=== PATIENT | male | born 2000 | race Hispanic/Latino ===

== ENCOUNTER 2022-12-21 14:30 | Inpatient (IN) | payer OTHER, MEDICAID ==
[2022-12-21] MEDS ORDERED: Lidocaine 1% w/Epinephrine 1:100K 20 ML VIAL ONE (14:51)
[2022-12-21] MEDS ORDERED: Boostrix 0.5 ML (Tdap) VIAL (>/=7 yrs of age) ONE (14:51)
[2022-12-21] MEDS ORDERED: CEFAZOLIN 2 GM VIAL ONE (14:51)
[2022-12-21] MEDS ORDERED: Lidocaine 2% PF 5 ML VIAL ONE (14:51)
[2022-12-21] MEDS ORDERED: Ketamine 50 MG/ML (10ML VIAL) ONE (14:52)
[2022-12-21] MEDS ORDERED: Iopamidol-370 76% 500 ML MDV (1 ML CHARGE) ONE (15:09)
[2022-12-21 15:15] LABS: Bacteria/HPF None Seen HPF (None Seen); Bilirubin Negative (Negative); Blood, Urine 3+ (Negative); Clarity Clear (Clear); Glucose, Urine (Dipstick) 30 mg/dL (Negative); Ketone, Urine Negative (Negative); Leukocyte Negative Leu/uL (Negative); Nitrite Negative (Negative); Protein, Urine (Dipstick) 30 mg/dL (Neg-Trace); Squamous Epithelial None Seen HPF (0-3); Urobilinogen Normal mg/dL (Less than 2); WBC/HPF None Seen HPF (0-3); pH, Urine 6.5 (5.0-9.0)
[2022-12-21] MEDS ORDERED: fentaNYL 50 mcg/mL 1 mL Vial ONE ×2 (15:15→15:50)
[2022-12-21 15:16] LABS: RBC/HPF 21-50 HPF (0-3)
[2022-12-21 15:23] LABS: #Basophils 0.1 thou/uL (0.0-0.2); #Eosinphils 0.1 thou/uL (0.0-0.7); #Monocytes 0.2 thou/uL (0.11-0.59); #Neutrophils 16.6 thou/uL (1.40-6.50); %Basophils 0.4 % (0.0-1.0); %Eosinophils 0.3 % (0.0-10.0); %Lymphocytes 12.7 % (28.0-48.0); %Neutrophils 84.3 % (31.0-61.0); Hemoglobin 12.1 g/dL (14.0-18.0); Mean Corpuscular HGB CONC 33.2 g/dL (32.0-36.0); Mean Corpuscular Hemoglobin 30.4 pg (25.0-35.0); Mean Corpuscular Volume 91.7 fl (78.0-98.0); Mean Platelet Volume 9.1 fL (7.4-10.4); Platelet Count 227 10x3/uL (130-400); RBC Distribution Width 11.9 % (11.5-14.5); Red Blood Cell (RBC) Count 3.98 mill/uL (4.00-5.20); White Blood Cell (WBC) Count 19.7 10x3/uL (4.8-10.8)
[2022-12-21 15:35] LABS: PTT 25.8 sec (22.9-36.1); Prothrombin Time 14.1 sec (12.0-14.7)
[2022-12-21 15:37] LABS: ALT (SGPT) 227 U/L (8-55); AST (SGOT) 217 U/L (5-34); Albumin 3.6 g/dL (3.5-5.0); Alcohol Less than 10.0 mg/dL (Less than 10); Alkaline Phosphatase 54 U/L (50-130); Anion Gap 17 mmol/L (10-20); BUN (Urea Nitrogen) 13 mg/dL (8.9-20.6); Bilirubin, Total 0.5 mg/dL (0.2-1.2); Calc. Creatinine Clearance 0 mL/min (70-130); Calcium 8.3 mg/dL (7.8-10.44); Carbon Dioxide 16 mmol/L (22-29); Chloride 108 mmol/L (98-107); Estimated GFR 89; Globulin 2.3 g/dL (2.4-3.5); Glucose 171 mg/dL (70-105); Protein, Total 5.9 g/dL (6.0-8.3); Sodium 138 mmol/L (136-145)
[2022-12-21] MEDS ORDERED: Morphine 4 MG/ML VIAL SLOW IVP PRN (15:56)
[2022-12-21] MEDS ORDERED: Ipratropium/Albuterol 3 ML NEB NEB PRN (15:56)
[2022-12-21] MEDS ORDERED: Ondansetron PF 4 MG/2 ML Vial IVP PRN (15:56)
[2022-12-21] MEDS ORDERED: Morphine 2 MG/ML VIAL SLOW IVP PRN (15:56)
[2022-12-21] MEDS ORDERED: Sodium Chloride 0.9% 1,000 ML IV SCH ×2 (16:00→17:02)
[2022-12-21 16:12] LABS: Actual Bicarbonate (HCO3a) 21.3 mEq/L (22-28); Analyzer IN Cardio ER; Base Excess (BEa) -3.9 mEq/L (-2.0 to +3.0); CO2 Tension 39.2 mmHg (35.0-45.0); Calcium, Ionized (arterial) 1.06 mmol/L (1.12-1.30); Carboxyhemoglobin (COHb) 0.3 gm% (0.0-3.0); Hematocrit-ABG 45 % (42.0-52.0); Hemoglobin (Hb) 15.4 g/dL (11.4-15.4); Potassium - ABG Lab 3.27 mmol/L (3.70-5.30); pH, Arterial 7.352 (7.35-7.45)
[2022-12-21 16:15] LABS: Puncture Site Right Radial
[2022-12-21] MEDS ORDERED: Magnesium 2 GM/50 ML(in water) 2 GM in Premix Bag 1 BAG IVPB SCH (16:15)
[2022-12-21] MEDS ORDERED: Potassium Phosphate 30 MMOL in Sodium Chloride 0.9% 250 ML 250 ML IVPB SCH (16:15)
[2022-12-21] MEDS ORDERED: Calcium Chloride 13.6 MEQ in Sodium Chloride 0.9% 100 ML IVPB SCH (16:45)
[2022-12-21] MEDS ORDERED: traMADol HCl 50 MG TAB PO PRN (16:59)
[2022-12-21 17:24] LABS: Acetaminophen Less than 10 mcg/mL (10.0-30.0); Alcohol Less than 10.0 mg/dL (Less than 10); Salicylate Less than 8.0 mg/dL (15.0-30.0)
[2022-12-21 17:35] LABS: Amphetamine Not Detected (NotDetected); Barbiturates Screen Not Detected (NotDetected); Benzodiazepine Screen Not Detected (NotDetected); Cocaine Metabolite Screen Not Detected (NotDetected); Methadone Not Detected (NotDetected); Methamphetamine Not Detected (NotDetected); Opiate Screen Not Detected (NotDetected); Oxycodone Screen Not Detected (NotDetected); Phencyclidine (PCP) Not Detected (NotDetected); THC/Cannabinoid Screen Not Detected (NotDetected); Tricyclic Screen Not Detected (NotDetected)
[2022-12-21] MEDS: Acetaminophen 500 MG TAB PO SCH ×2 (17:52→21:30)
[2022-12-21] MEDS: traMADol HCl 50 MG TAB PO SCH ×2 (17:53→23:29)
[2022-12-21] MEDS: Calcium Chloride 13.6 MEQ in Sodium Chloride 0.9% 100 ML IVPB SCH ×2 (19:06→20:13)
[2022-12-21] MEDS: Lactated Ringer's 1,000 ML IV SCH (20:13)
[2022-12-21] MEDS: Famotidine 20 MG TAB PO SCH (21:30)
[2022-12-21 21:46] LABS: #Monocytes 0.5 thou/uL (0.11-0.59); #Neutrophils 15.2 thou/uL (1.40-6.50); %Basophils 0.2 % (0.0-1.0); %Eosinophils 0.1 % (0.0-10.0); %Lymphocytes 4.7 % (28.0-48.0); %Monocytes 3.2 % (0.0-4.0); %Neutrophils 91.5 % (31.0-61.0); Mean Corpuscular HGB CONC 33.8 g/dL (32.0-36.0); Mean Platelet Volume 8.9 fL (7.4-10.4); Platelet Count 195 10x3/uL (130-400); RBC Distribution Width 13.4 % (11.5-14.5); Red Blood Cell (RBC) Count 4.67 mill/uL (4.00-5.20); White Blood Cell (WBC) Count 16.5 10x3/uL (4.8-10.8)
[2022-12-21 21:50] LABS: Mean Corpuscular Volume 88.7 fl (78.0-98.0)
[2022-12-21 22:21] LABS: Anion Gap 11 mmol/L (10-20); BUN (Urea Nitrogen) 12 mg/dL (8.9-20.6); Calc. Creatinine Clearance 98 mL/min (70-130); Calcium 9.7 mg/dL (7.8-10.44); Carbon Dioxide 23 mmol/L (22-29); Chloride 110 mmol/L (98-107); Estimated GFR 111; Glucose 104 mg/dL (70-105); Magnesium 2.2 mg/dL (1.7-2.2); Phosphorus 5.8 mg/dL (2.3-4.7); Potassium 4.3 mmol/L (3.5-5.1); Sodium 140 mmol/L (136-145)
[2022-12-22] MEDS: Acetaminophen 500 MG TAB PO SCH ×4 (04:05→21:13)
[2022-12-22] MEDS: Lactated Ringer's 1,000 ML IV SCH (04:05)
[2022-12-22 04:20] LABS: #Eosinphils 0.1 thou/uL (0.0-0.7); #Monocytes 0.5 thou/uL (0.11-0.59); %Basophils 0.2 % (0.0-1.0); %Eosinophils 0.5 % (0.0-10.0); %Lymphocytes 13.8 % (28.0-48.0); %Monocytes 4.3 % (0.0-4.0); %Neutrophils 80.7 % (31.0-61.0); Hemoglobin 13.5 g/dL (14.0-18.0); Mean Corpuscular HGB CONC 33.8 g/dL (32.0-36.0); Mean Corpuscular Volume 88.9 fl (78.0-98.0); Platelet Count 184 10x3/uL (130-400); RBC Distribution Width 13.4 % (11.5-14.5); White Blood Cell (WBC) Count 12.4 10x3/uL (4.8-10.8)
[2022-12-22 04:35] LABS: INR-International Normal Ratio 1.2; PTT 26.9 sec (22.9-36.1); Prothrombin Time 15.4 sec (12.0-14.7)
[2022-12-22 04:44] LABS: Lactic Acid 0.9 mmol/L (0.5-2.2)
[2022-12-22 04:47] LABS: Anion Gap 9 mmol/L (10-20); BUN (Urea Nitrogen) 10 mg/dL (8.9-20.6); Calc. Creatinine Clearance 115 mL/min (70-130); Calcium 8.9 mg/dL (7.8-10.44); Carbon Dioxide 25 mmol/L (22-29); Chloride 106 mmol/L (98-107); Estimated GFR 128; Glucose 89 mg/dL (70-105); Magnesium 1.8 mg/dL (1.7-2.2); Sodium 136 mmol/L (136-145)
[2022-12-22 05:12] LABS: Phosphorus 4.4 mg/dL (2.3-4.7)
[2022-12-22] MEDS: traMADol HCl 50 MG TAB PO SCH ×4 (05:13→23:00)
[2022-12-22] MEDS: methylPREDNISolone Sod Succ 40 MG VIAL IVP SCH ×3 (05:14→21:14)
[2022-12-22] MEDS: Famotidine 20 MG TAB PO SCH ×2 (08:28→21:13)
[2022-12-22] MEDS ORDERED: Magnesium Sulfate 1 GM, Admixture Fee 1 EACH in Sodium Chloride 0.9% 100 ML IVPB SCH (08:30)
[2022-12-23] MEDS: traMADol HCl 50 MG TAB PO SCH ×4 (05:16→23:45)
[2022-12-23] MEDS: Acetaminophen 500 MG TAB PO SCH ×4 (05:17→21:20)
[2022-12-23] MEDS: methylPREDNISolone Sod Succ 40 MG VIAL IVP SCH ×3 (05:18→21:20)
[2022-12-23] MEDS: Famotidine 20 MG TAB PO SCH ×2 (08:55→21:20)
[2022-12-24] MEDS: methylPREDNISolone Sod Succ 40 MG VIAL IVP SCH (05:15)
[2022-12-24] MEDS: Acetaminophen 500 MG TAB PO SCH ×4 (05:15→23:32)
[2022-12-24] MEDS: traMADol HCl 50 MG TAB PO SCH ×4 (05:24→23:32)
[2022-12-24] MEDS: Famotidine 20 MG TAB PO SCH ×2 (08:38→21:34)
[2022-12-24] MEDS ORDERED: Bupivacaine/Epinephrine 0.25% 30 ML VIAL ONE (10:51)
[2022-12-24] MEDS ORDERED: Bupivacaine HCl 0.5%/Epinephrine 1:200,000/PF 30 ml Vial ONE (10:51)
[2022-12-25] MEDS: Acetaminophen 500 MG TAB PO SCH ×4 (05:36→20:46)
[2022-12-25] MEDS: traMADol HCl 50 MG TAB PO SCH ×4 (06:50→23:49)
[2022-12-25] MEDS: Famotidine 20 MG TAB PO SCH ×2 (08:37→20:46)
[2022-12-25] MEDS ORDERED: Cyclobenzaprine 10 MG TAB PO PRN (14:41)
[2022-12-25] MEDS ORDERED: Ibuprofen 200 MG TAB PO PRN (14:44)
[2022-12-26 03:50] VITALS: BMI 22.3
[2022-12-26] MEDS: Acetaminophen 500 MG TAB PO SCH ×4 (04:51→21:07)
[2022-12-26] MEDS: traMADol HCl 50 MG TAB PO SCH ×4 (05:57→23:09)
[2022-12-26] MEDS: Famotidine 20 MG TAB PO SCH ×2 (08:26→20:35)
[2022-12-27] MEDS: Acetaminophen 500 MG TAB PO SCH ×4 (04:49→21:02)
[2022-12-27] MEDS: traMADol HCl 50 MG TAB PO SCH ×4 (05:17→23:31)
[2022-12-27] MEDS: Famotidine 20 MG TAB PO SCH ×2 (08:43→21:02)
[2022-12-28] MEDS: Acetaminophen 500 MG TAB PO SCH ×2 (05:01→09:24)
[2022-12-28] MEDS: traMADol HCl 50 MG TAB PO SCH (05:02)
[2022-12-28] MEDS: Famotidine 20 MG TAB PO SCH (09:24)
[2022-12-28 13:30] VITALS: BP 97/63; TEMP 98.4
== END 2022-12-28 13:15 | disposition home or self-care (01) | DRG 963 ==
LOC: ERS 14:30 → CCU 14:52 → SURG A 12-22 22:35
PROVIDERS: ADMIT Surgery; ATTEND Surgery
PROC: 30233N1 Transfusion of Nonautologous Red Blood Cells into Peripheral Vein, Percutaneous Approach (ICD-10-PCS; 2022-12-21)
PROC: 30233K1 Transfusion of Nonautologous Frozen Plasma into Peripheral Vein, Percutaneous Approach (ICD-10-PCS; 2022-12-21)
PROC: 5A0935A Assistance with Respiratory Ventilation, Less than 24 Consecutive Hours, High Flow/Velocity Cannula (ICD-10-PCS; 2022-12-21)
PROC: 4A033R1 Measurement of Arterial Saturation, Peripheral, Percutaneous Approach (ICD-10-PCS; 2022-12-21)
PROC: 0W9B00Z Drainage of Left Pleural Cavity with Drainage Device, Open Approach (ICD-10-PCS; principal; 2022-12-24)
DX: S27.2XXA Traumatic hemopneumothorax, initial encounter (principal); J96.01 Acute respiratory failure with hypoxia; S36.113A Laceration of liver, unspecified degree, initial encounter; S22.32XA Fracture of one rib, left side, initial encounter for closed fracture; S27.321A Contusion of lung, unilateral, initial encounter; T79.7XXA Traumatic subcutaneous emphysema, initial encounter; E87.6 Hypokalemia; I95.9 Hypotension, unspecified; V89.2XXA Person injured in unspecified motor-vehicle accident, traffic, initial encounter
CPT/HCPCS: 36415; 36430; 70450; 71045; 71046; 71260; 72125; 74177; 80048; 80053; 80306; 80307; 81001; 82533; 82805; 83605; 83735; 83930; 84100; 85025; 85610; 85730; 86850; 86900; 86901; 90471; 90715; 96365; 96366; 96375; G0390; J2001; J2272; J2920; J3010; J3475; J3490; J7050; J7120; P9016; P9048; Q9967